=== PATIENT | female | born 1985 | race Caucasian/White ===

== ENCOUNTER → 2020-06-26 | Outpatient (CLI) | payer MEDICAID | LOC: MHCPAIN 10:22 | DX: M47.817 Spondylosis without myelopathy or radiculopathy, lumbosacral region (principal); M54.5 Low back pain; M53.3 Sacrococcygeal disorders, not elsewhere classified; G89.29 Other chronic pain | CPT/HCPCS: G0463 ==

== ENCOUNTER 2021-03-26 11:15 | Outpatient (RCR) | payer MEDICAID | END 2021-04-15 15:12 | disposition home or self-care (01) | LOC: WSOT | DX: M67.843 Other specified disorders of tendon, right hand (principal) ==

== ENCOUNTER 2021-11-11 09:17 | Outpatient (CLI) | payer MEDICAID ==
[2021-11-11] VITALS (18 sets, daily range): BP systolic 111–143; BP diastolic 60–83; PULSE 58–80; TEMP 98.5
[~2021-11-11] VITALS: Ht 177.8 cm; Wt 101.1 kg
[~2021-11-11 09:17] MED LIST: ZYRTEC 10MG10 MG PO
--- NOTE | 2021-11-11 11:15 | NUR ---
Pt to ct per ambulation. Pt positioned in prone position on CT table. Monitors applied. O2 on at 2l/nc.
--- NOTE | 2021-11-11 11:25 | NUR ---
pt repositioned to back to obtained CTA of chest. New INT attempted due to needing 20 gauge without success.
--- NOTE | 2021-11-11 11:50 | NUR ---
nurse from ER here to attempt INT started in left AC. Scan to be completed.
--- NOTE | 2021-11-11 12:15 | NUR ---
Pt repositioned to prone position. Monitors applied to pt. O2 on at 2l/nc. Pt very emotional and crying.
--- NOTE | 2021-11-11 12:30 | NUR ---
Specimens obtained by Dr Austin and placed in formalin. Specimen labeled.
--- NOTE | 2021-11-11 15:32 | NUR ---
Discharge instructions given to pt.Pt escorted out via wheelchair by leona Rangel.
== END 2021-11-11 15:33 ==
LOC: COL.RAD 09:17
DX: R93.89 Abnormal findings on diagnostic imaging of other specified body structures (principal); R59.0 Localized enlarged lymph nodes; R91.1 Solitary pulmonary nodule
CPT/HCPCS: J2250; J3010; Q9967

== ENCOUNTER 2022-09-08 14:31 | Outpatient (RCR) | payer MEDICAID | END 2022-09-13 | LOC: WSOT | DX: M79.644 Pain in right finger(s) (principal) ==